=== PATIENT | male | born 1995 | race Caucasian/White ===

== ENCOUNTER 2022-03-31 05:40 | Emergency (ER) | payer BC ==
[~2022-03-31] VITALS: Ht 170.2 cm; Wt 108.0 kg
[2022-03-31] MEDS ORDERED: CIPRODEX OTIC7.5 ML AS (05:59)
== END 2022-03-31 06:13 | disposition home or self-care (01) ==
LOC: ED 05:40
DX: H60.92 Unspecified otitis externa, left ear (principal)
CPT/HCPCS: 99282; A9270